=== PATIENT | male | born 1980 | race Caucasian/White ===

== ENCOUNTER 2024-08-21 18:35 | Emergency (ER) | payer BC, SELFPAY ==
[2024-08-21 18:40] VITALS: BP 135/90
--- NOTE | 2024-08-21 18:42 | ED.MUSCINJ ---
HPI-Injury
<Miguel Briones PA-C - Last Filed: 08/21/24 18:43>
General
Chief Complaint: Musculo-Skeletal Complaint
Time Seen by Provider: 08/21/24 19:19
<Joycelyn Tiwari NP - Last Filed: 08/21/24 23:03>
General
Source: patient
Exam Limitations: none
Nursing documentation reviewed up to this point in time: agreed with
History of Present Illness-Injury
Is this injury a work related problem?: No
Is pt an associate of [facility]?: No
Initial Injury comments:
Patient to ED wtih complaint of pain to right ant. thigh. Symptoms started yesterday. States he thought it was due to a cramp but symptoms persisted today and he was advised to come to ED for eval.
ED Provider Triage
<Miguel Briones PA-C - Last Filed: 08/21/24 18:43>
-
Patient seen by provider in Triage?: Seen in Triage
Attestation: A medical screening examination has been initiated by a qualified medical provider. Based on the assessment performed at this time, it has been determined that an emergent medical condition may exist and the patient has been informed
that further medical evaluation and possible additional diagnostic testing may be needed.
HPI: 43-year-old male presents with atraumatic discomfort to the right upper thigh starting yesterday and persistent today. No associated chest pain or shortness of breath. He does frequently fly. He also had a surgery on his left knee about 4
weeks ago. Spoke with his family doctor on the phone and was sent here to rule out DVT
Stable vital signs. Venous ultrasound pending of the right leg
GENERAL: Alert , in no apparent distress
EYE: No visual abnormalities.
NECK: Trachea midline
ENT: No visible abnormalities.
LUNGS: No acute respiratory distress
NEUROLOGICAL: Alert and oriented
SKIN: Skin intact. No visible changes.
MUSCULOSKELETAL: Moving extremities normally
PSYCH: Normal and appropriate interaction.
This is a medical evaluation conducted in person to initiate diagnostic evaluation and provide initial therapeutics. Please see further documentation by the treating clinician.
Past History
<Joycelyn Tiwari [employer]YL[employer] INTERN - Last Filed: 08/21/24 23:03>
Past History
ED Past Medical History: None
ED Past Surgical History: Orthopedic
Review of Systems
<Joycelyn Tiwari [employer]N - Last Filed: 08/21/24 23:03>
Review of Systems
Allergies reviewed?: Yes
All Other Systems: ROS reviewed and negative except as documented in HPI and ROS
Constitutional: Reports no symptoms
EENT: Reports no symptoms
Respiratory: Reports no symptoms
Cardiac: Reports no symptoms
ABD/GI: Reports no symptoms
Musculoskeletal: Reports joint pain (Pain to right anterior thigh)
Skin: Reports no symptoms
Neurological: Reports no symptoms
Psychiatric: Reports no symptoms
Musculoskeletal Injury Exam
<Joycelyn Tiwari [employer]N - Last Filed: 08/21/24 23:03>
Musculoskeletal Injury Exam
Right Anterior Thigh:
Pain with Movement?: Moderate
Tender to palpation?: Moderate
Soft tissue swelling?: None
External deformity and angulation?: None
Joint effusion?: None
Contusion?: None
Hematoma-local bleeding into tissue?: None
Strain- Sprain- Tear (Connective tissue injury)?: None
Crepitus with movement?: No
Joint instability?: No
Malalignment/deformity?: No
Range of motion: Full
Distal skin color and temperature: normal-warm & good color
Capillary Refill: normal
Normal distal neurovascular exam?: Yes
Peripheral Pulses: posterior tibial (right): 3+ and dorsalis pedis (right): 3+
Phy Exam
<Joycelyn Tiwari NP - Last Filed: 08/21/24 23:03>
General Physical Exam
General Presentation: well appearing and no apparent distress
General age: appears stated age
General Skin: warm and dry
General Habitus: normal
General Mental: alert
Musculoskeletal Exam
Musculoskeletal Exam: full ROM and neuro vasc intact
Skin Exam
Skin Exam: normal color, warm/dry and no rash
Psychiatric Exam
Psychiatric Exam: normal mood/affect
Injury Course
<Miguel Briones PA-C - Last Filed: 08/21/24 18:43>
Orders/Labs/Results
Orders:
Orders
08/21/24 18:40
Venous Doppler Lwr Ext Rt [US Periph Venous LOWER Ext RT] Urgent
Comment:
Reason For Exam: pain in leg
<Joycelyn Tiwari NP - Last Filed: 08/21/24 23:03>
Orders/Labs/Results
Orders:
Orders
08/21/24 18:40
Venous Doppler Lwr Ext Rt [US Periph Venous LOWER Ext RT] Urgent
Comment:
Reason For Exam: pain in leg
<Joycelyn Tiwari NP - Last Filed: 08/21/24 23:03>
*Radiology
Radiology exam reviewed: radiology read reviewed
*Pulse Oximetry
Patient hypoxic: no
ED Attending Note
<Miguel Briones PA-C - Last Filed: 08/21/24 18:43>
-
Portions of this chart may have been created with voice recognition software.� Occasional wrong word or��sound alike� substitutions may have occurred due to the inherent limitations of voice recognition software.
Discharge Plan
Departure
Patient Disposition: Home (Routine Discharge)
Date of Disposition: 08/21/24
Time of Disposition: 20:46
Patient with high blood pressure during this ER visit?: No
Condition: Good
Covid-19: Not Applicable
Discharge Problem:
Acute thigh pain
Instructions: Muscle and Bone Pain (DC), Ibuprofen, Using Cold for Pain
Referrals:
Riccardo Vasquez, [Family Provider] - Follow up in 2-3 days
Activity Restrictions/Additional Instructions:
return to the emergency department for any changes in/worsening of your symptoms
Interventions
Interventions:
*Risk Screen - Suicide Last Done: 08/21/24 18:40
*General Assessment Last Done: 08/21/24 18:40
*Neglect/Abuse Screening Last Done: 08/21/24 18:40
*ED COVID-19 Vaccine History Last Done: 08/21/24 18:40
*Nursing Disposition Last Done: 08/21/24 20:57
ED-Musculoskeletal Assessment Last Done: 08/21/24 19:24
Discharge Date and Time
Discharge Date/Time: 08/21/24 20:58
Print Language: DANISH
== END 2024-08-21 20:58 | disposition home or self-care (01) ==
LOC: EMR 18:35
PROVIDERS: EMERGENCY PHYSICIAN Emergency Medicine; FAMILY PHYSICIAN Family Medicine
DX: M79.651 Pain in right thigh (principal)
CPT/HCPCS: 99284; 93971